=== PATIENT | male | born 1950 | race Caucasian/White ===

== ENCOUNTER 2016-05-29 12:11 | Observation (INO) | payer MEDICARE, OTHER ==
[~2016-05-29] VITALS: Ht 182.9 cm; Wt 107.0 kg
[2016-05-29 13:45] LABS: BASO # 0.1 10_X3_uL (0.0-0.1); BASO % 1.6 % (0.2-1.2); EOS # 0.1 10_X3_uL (0.0-0.5); EOS % 1.6 % (0.8-7.0); GRAN % 51.2 % (34.0-67.9); LYMPH # 1.5 10_X3_uL (1.3-3.6); LYMPH % 37.6 % (21.8-53.1); MEAN CORPUSCULAR HEMOGLOBIN 25.1 pg (27.0-33.0); MEAN CORPUSCULAR HGB CONC 31.3 g/dL (32.0-36.0); MEAN CORPUSCULAR VOLUME 80.4 fL (79-92); MEAN PLATELET VOLUME 11.4 fl (7.5-11.5); MONO # 0.3 10_X3_uL (0.3-0.8); PLATELET COUNT 119 x10_3/uL (163-337); RED BLOOD COUNT 3.98 x10_6/uL (4.6-6.1); RED CELL DISTRIBUTION WIDTH 16.1 % (11.6-14.4); WHITE BLOOD COUNT 3.9 x10_3/uL (4.2-9.1)
[2016-05-29 13:56] LABS: CKMB 2.5 ng/ml (0.0-5.0)
[2016-05-29 14:01] LABS: ALBUMIN 3.8 gm/dL (3.4-5.0); ALKALINE PHOSPHATASE 88 U/L (50-136); ALT/SGPT 9 U/L (7.53-40.17); AST/SGOT 13 U/L (6.66-35.34); BILIRUBIN,TOTAL 0.69 mg/dL (0.0-1.0); BLOOD UREA NITROGEN 15 mg/dL (7-18); CALCIUM 8.3 mg/dL (8.7-10.7); CARBON DIOXIDE 24 mmol/L (21-32); CREATININE 1.2 mg/dL (0.6-1.3); GLUCOSE,RANDOM 169 mg/dL (70-99); MAGNESIUM 1.8 mg/dL (1.8-2.4); POTASSIUM 4.4 mmol/L (3.5-5.1); SODIUM 136 mmol/L (136-145)
[2016-05-29 14:05] LABS: BILIRUBIN,DIRECT < 0.20 mg/dL (0.0-0.30); TROP-I < 0.30 NG/ML (0.00-0.30)
[2016-05-29 14:06] LABS: DIGOXIN < 0.3 ng/ml (0.90-2.00)
[2016-05-29 14:18] LABS: INR 1.4 (0.9-1.1); PARTIAL THROMBOPLASTIN TIME 30.2 SECONDS (21.3-29.3)
[2016-05-29 21:48] LABS: TROP-I < 0.30 NG/ML (0.00-0.30)
[2016-05-30 06:25] LABS: CKMB 2.1 ng/ml (0.0-5.0)
[2016-05-30 06:26] LABS: MAGNESIUM 1.8 mg/dL (1.8-2.4)
[2016-05-30 06:27] LABS: ALBUMIN 3.9 gm/dL (3.4-5.0); BILIRUBIN,TOTAL 0.66 mg/dL (0.0-1.0); CALCIUM 8.8 mg/dL (8.7-10.7); CREATININE 1.3 mg/dL (0.6-1.3); POTASSIUM 4.5 mmol/L (3.5-5.1); TOTAL PROTEIN 7.4 gm/dL (6.4-8.2)
[2016-05-30 06:28] LABS: TROP-I < 0.30 NG/ML (0.00-0.30)
[2016-05-30 07:00] LABS: INR 1.7 (0.9-1.1); PROTHROMBIN TIME (PATIENT) 17.4 SECONDS (9.9-11.1)
[2016-05-31 07:06] LABS: HEMATOCRIT 36.4 % (40-51); HEMOGLOBIN 11.8 g/dL (13.7-17.5); MEAN CORPUSCULAR HEMOGLOBIN 25.4 pg (27.0-33.0); MEAN CORPUSCULAR HGB CONC 32.4 g/dL (32.0-36.0); MEAN CORPUSCULAR VOLUME 78.3 fL (79-92); MEAN PLATELET VOLUME 12.5 fl (7.5-11.5); RED BLOOD COUNT 4.65 x10_6/uL (4.6-6.1); RED CELL DISTRIBUTION WIDTH 16.1 % (11.6-14.4); WHITE BLOOD COUNT 5.5 x10_3/uL (4.2-9.1)
[2016-05-31 07:07] LABS: INR 1.9 (0.9-1.1); PROTHROMBIN TIME (PATIENT) 19.8 SECONDS (9.9-11.1)
[2016-05-31 07:16] LABS: BLOOD UREA NITROGEN 18 mg/dL (7-18); CALCIUM 9.2 mg/dL (8.7-10.7); CARBON DIOXIDE 27 mmol/L (21-32); CREATININE 1.2 mg/dL (0.6-1.3); GLUCOSE,RANDOM 133 mg/dL (70-99); MAGNESIUM 1.7 mg/dL (1.8-2.4); POTASSIUM 4.1 mmol/L (3.5-5.1); SODIUM 133 mmol/L (136-145)
== END 2016-05-31 14:20 | disposition home or self-care (01) ==
LOC: MS 12:11
PROVIDERS: ADMIT Family Medicine
DX: I11.0 Hypertensive heart disease with heart failure (principal); I50.9 Heart failure, unspecified; D64.9 Anemia, unspecified; E83.42 Hypomagnesemia; Z95.5 Presence of coronary angioplasty implant and graft; E11.9 Type 2 diabetes mellitus without complications; R63.5 Abnormal weight gain; R60.0 Localized edema; Z79.01 Long term (current) use of anticoagulants; Z95.0 Presence of cardiac pacemaker; Z87.442 Personal history of urinary calculi; Z79.1 Long term (current) use of non-steroidal anti-inflammatories (NSAID); Z79.4 Long term (current) use of insulin; Z68.34 Body mass index [BMI] 34.0-34.9, adult
CPT/HCPCS: 36415; 71020; 80048; 80053; 80061; 80076; 80162; 82550; 82553; 82962; 83036; 83735; 83880; 84443; 85025; 85610; 85730; 93005; 93041; 93306; 96374; 96376; 99070; G0378